=== PATIENT | female | born 1960 | race Caucasian/White ===

== ENCOUNTER 2017-06-13 15:43 | Emergency (ER) | payer MEDICAID ==
[2017-06-13 16:13] VITALS: BP 185/87; PULSE 78; RESP 16; TEMP 98.2; O2SAT 98
[2017-06-13] MEDS ORDERED: LEVO175T2 PO (17:22)
[2017-06-13] MEDS ORDERED: LIPI40TA PO (17:22)
[2017-06-13] MEDS ORDERED: TRAZ100T10 PO (17:22)
[2017-06-13] MEDS ORDERED: ROBA500T PO (17:22)
[2017-06-13] MEDS ORDERED: MELO7.5T27 PO (17:22)
[2017-06-13] MEDS ORDERED: METF1000 PO (17:22)
[2017-06-13] MEDS ORDERED: AMBI5TAB PO (17:22)
[2017-06-13] MEDS ORDERED: FURO20TA PO (17:22)
[2017-06-13] MEDS ORDERED: LANTINJ SQ (17:22)
[2017-06-13] MEDS ORDERED: CITA10TA4 PO (17:22)
--- NOTE | 2017-06-13 17:51 | PD ---
HPI Chief Complaint: Anxiety Time Seen by Provider: 17:18 Travel History International Travel<30 days: No Contact w/Intl Traveler<30days: No Traveled to known affect area: No History of Present Illness HPI The patient was seen and examined in the presence of the nurse. This patient complains of having an anxiety attack. It lasted about 20 minutes. It has resolved. She feels fine now. She says that she felt anxious and became sweaty and nauseous and short of breath. She did not have any chest pain. No presyncopal symptoms. She has had them before. Severity was moderate but has resolved on its own [facility] Past Medical History Depression: Yes Cardiovascular Problems: Yes High Cholesterol: Yes Diabetes: Yes Patient Takes Glucophage: Yes Diminished Hearing: No Hypertension: Yes Insomnia: Yes Psychiatric: Yes Thyroid Disease: Yes Tetanus Vaccination: > 5 Years Influenza Vaccination: No ?: Not Past Surgical History Surgical History: No Previous Surgery Social History Alcohol Use: No Tobacco Use: Yes Substance Use: No Allergies-Medications (Allergen,Severity, Reaction): Coded Allergies: No Known Allergies (Unverified , 06/13/17) Reported Meds & Prescriptions Reported Meds & Active Scripts Active Reported Lantus Solostar Pen Inj (Insulin Glargine) 300 Unit/3 Ml Pen 20 Units SQ HS Citalopram (Citalopram Hydrobromide) 10 Mg Tab 10 Mg PO DAILY Meloxicam 7.5 Mg Tab 7.5 Mg PO DAILY Robaxin (Methocarbamol) 500 Mg Tab 500 Mg PO TID Trazodone (Trazodone HCl) 100 Mg Tablet 100 Mg PO HS Ambien (Zolpidem Tartrate) 5 Mg Tab 5 Mg PO HS PRN Furosemide 20 Mg Tab 20 Mg PO DAILY Levothyroxine (Levothyroxine Sodium) 175 Mcg Tab 175 Mcg PO DAILY Lipitor (Atorvastatin Calcium) 40 Mg Tab 40 Mg PO HS Metformin (Metformin HCl) 1,000 Mg Tab 1,000 Mg PO BIDPC Review of Systems General / Constitutional: No: Fever Cardiovascular: No: Chest Pain or Discomfort Respiratory: No: Cough Gastrointestinal: Positive: Nausea Physical Exam Narrative GENERAL: Well-nourished, well-developed patient. SKIN: Focused skin assessment warm/dry. HEAD: Normocephalic. EYES: No scleral icterus. No injection or drainage. NECK: Supple, trachea midline. No JVD or lymphadenopathy. CARDIOVASCULAR: Regular rate and rhythm without murmurs, gallops, or rubs. RESPIRATORY: Breath sounds equal bilaterally. No accessory muscle use. GASTROINTESTINAL: Abdomen soft, non-tender, nondistended. MUSCULOSKELETAL: No cyanosis, or edema. BACK: Nontender without obvious deformity. No CVA tenderness. Data Data Last Documented VS Vital Signs Date Time Temp Pulse Resp B/P (MAP) Pulse Ox O2 Delivery O2 Flow Rate FiO2 06/13/17 16:13 98.2 78 16 185/87 (119) 98 Orders Orders Electrocardiogram (06/13/17 ) [facility] Medical Decision Making Medical Screen Exam Complete: Yes Emergency Medical Condition: Yes Medical Record Reviewed: Yes Differential Diagnosis Anxiety, panic, arrhythmia Narrative Course I have reviewed the patient's electronic medical record. Reviewed her EKG which shows sinus rhythm but no ST elevation or ectopy Presentation seems consistent with an anxiety attack but it has resolved and now she is looking fine. The patient was advised to follow up with their physician and return if they worsen. Diagnosis Primary Impression: Anxiety attack Additional Instructions: The patient was advised to follow up with their physician and return if they worsen. Med/Other Pt SpecificInfo: Other Disposition: 01 DISCHARGE HOME Condition: Stable Km Grey MD Jun 13, 2017 17:51
--- NOTE | 2017-06-14 16:20 | EKG ---
Date Performed: 06/13/2017 Time Performed: 18:26:36 PTAGE: 56 years EKG: Sinus rhythm POSSIBLE RIGHT VENTRICULAR CONDUCTION DELAY BORDERLINE ECG NO PREVIOUS TRACING DOCTOR: Twan Strange Interpretating Date/Time 06/14/2017 16:15:48
== END 2017-06-13 20:19 | disposition home or self-care (01) ==
LOC: NEPD 15:43
DX: F41.0 Panic disorder [episodic paroxysmal anxiety] (principal); E11.9 Type 2 diabetes mellitus without complications; R94.31 Abnormal electrocardiogram [ECG] [EKG]; I10 Essential (primary) hypertension; G47.00 Insomnia, unspecified; R11.0 Nausea; Z72.0 Tobacco use
CPT/HCPCS: 93005; 99283